=== PATIENT | female | born 1975 | race Caucasian/White ===

== ENCOUNTER 2017-08-15 09:45 | Emergency (ER) | payer SELFPAY ==
[~2017-08-15] VITALS: Ht 142.2 cm; Wt 50.0 kg
[2017-08-15 10:07] VITALS: BP 134/92
[2017-08-15] MEDS ORDERED: ACETAMINOPHEN 325MG TABLET PO ONE (10:45)
[2017-08-15] MEDS ORDERED: CEPHALEXIN 500MG CAPSULE PO ONE (11:00)
[2017-08-15] MEDS ORDERED: TETANUS, DIPHTHERIA, PERTUSSIS VAC/PF 0.5ML (>7YR OLD) IM ONE (11:00)
[2017-08-15] MEDS ORDERED: LIDOCAINE HCL 1% 20ML VIAL (Pyxis) INJ INFIL ONE (13:45)
[2017-08-15] MEDS ORDERED: BACITRACIN ZINC OINT UDPKT TOP ONE (14:30)
[2017-08-15 17:53] LABS: CLARITY URINE CLOUDY (CLEAR); COLOR URINE YELLOW (YELLOW); GLUCOSE URINE NEGATIVE (NEGATIVE); KETONES URINE NEGATIVE (NEGATIVE); LEUKOCYTE ESTERASE URINE 3+ (NEGATIVE); NITRITE URINE NEGATIVE (NEGATIVE); OCCULT BLOOD URINE NEGATIVE (NEGATIVE); PH URINE 6.5 (4.5-8.0); PROTEIN URINE NEGATIVE (NEGATIVE); SPECIFIC GRAVITY URINE 1.009 (1.005-1.030); UROBILINOGEN URINE 0.2 E.U./dL (0.2-1.0)
[2017-08-15 18:15] LABS: *AMPHETAMINES SCREEN URINE NEGATIVE (NEGATIVE); *BARBITURATES SCREEN URINE NEGATIVE (NEGATIVE); *BENZODIAZEPINES SCREEN URINE NEGATIVE (NEGATIVE); *COCAINE SCREEN URINE NEGATIVE (NEGATIVE); CANNABINOID URINE SCREEN NEGATIVE (NEGATIVE); METHADONE URINE SCREEN NEGATIVE (NEGATIVE); OPIATES URINE SCREEN NEGATIVE (NEGATIVE); PHENCYCLIDINE URINE SCREEN NEGATIVE (NEGATIVE)
== END 2017-08-15 14:50 | disposition home or self-care (01) ==
LOC: ER 10:47
DX: S81.011A Laceration without foreign body, right knee, initial encounter (principal); S80.02XA Contusion of left knee, initial encounter; S80.01XA Contusion of right knee, initial encounter; W31.89XA Contact with other specified machinery, initial encounter; Y93.89 Activity, other specified; Y92.89 Other specified places as the place of occurrence of the external cause; Y99.8 Other external cause status
CPT/HCPCS: 12004; 73560; 80305; 81001; 81025; 90471; 90715; 99285; A4217; J3490; L1830; Z7610

== ENCOUNTER 2017-08-18 09:30 | Emergency (ER) | payer SELFPAY ==
[~2017-08-18] VITALS: Ht 144.8 cm; Wt 73.0 kg
[2017-08-18 10:21] VITALS: BP 110/74
== END 2017-08-18 10:54 | disposition home or self-care (01) ==
LOC: ER 10:19
DX: Z48.00 Encounter for change or removal of nonsurgical wound dressing (principal); S81.012S Laceration without foreign body, left knee, sequela; X58.XXXS Exposure to other specified factors, sequela; Y92.9 Unspecified place or not applicable
CPT/HCPCS: 29505; 99283

== ENCOUNTER 2017-08-22 09:29 | Emergency (ER) | payer OTHER ==
[~2017-08-22] VITALS: Ht 137.2 cm; Wt 59.0 kg
[2017-08-22 12:05] VITALS: BP 124/86
== END 2017-08-22 13:11 | disposition home or self-care (01) ==
LOC: ER 10:20
DX: Z48.01 Encounter for change or removal of surgical wound dressing (principal)
CPT/HCPCS: 99283

== ENCOUNTER 2017-08-26 09:05 | Emergency (ER) | payer OTHER ==
[~2017-08-26] VITALS: Ht 162.6 cm; Wt 59.0 kg
[2017-08-26 13:10] VITALS: BP 118/78
== END 2017-08-26 13:43 | disposition home or self-care (01) ==
LOC: ER 09:57
DX: Z48.02 Encounter for removal of sutures (principal); Z90.49 Acquired absence of other specified parts of digestive tract
CPT/HCPCS: 99281; Z7610

== ENCOUNTER 2017-09-05 18:44 | Emergency (ER) | payer OTHER ==
[~2017-09-05] VITALS: Ht 152.4 cm; Wt 59.0 kg
[2017-09-06 02:20] VITALS: BP 120/80
[2017-09-06] MEDS ORDERED: ONDANSETRON HCL 4MG/2ML VIAL IV ONE (02:30)
[2017-09-06] MEDS ORDERED: SODIUM CHLORIDE 0.9% 1,000 ML IV ONE (02:30)
[2017-09-06] MEDS ORDERED: FAMOTIDINE 20MG/2ML VIAL IV SCH (02:30)
== END 2017-09-06 02:20 | disposition home or self-care (01) ==
LOC: ER 19:04
DX: Z48.01 Encounter for change or removal of surgical wound dressing (principal)
CPT/HCPCS: 99281; J7030